=== PATIENT | male | born 1960 | race Caucasian/White ===

== ENCOUNTER → 2019-10-26 15:14 | Outpatient (CLI) | payer OTHER, SELFPAY ==
[2019-10-26 15:52] LABS: Add Manual Diff / Slide Review NO; Basophils Absolute Auto 100 /uL (0-100); Basophils Percent Auto 0.9 % (0-2); Eosinophils Absolute Auto 200 /uL (0-450); Eosinophils Percent Auto 2.6 % (2-4); Hematocrit 44.6 % (41-53); Hemoglobin 15.5 g/dL (13.5-17.5); Lymphocytes Absolute Auto 1500 /uL (1100-4500); Lymphocytes Percent Auto 24.4 % (25-40); Mean Corpuscular HGB Conc 34.7 % (30-36); Mean Corpuscular Hemoglobin 33.5 PG (26-34); Mean Corpuscular Volume 96.5 fL (80-100); Monocytes Absolute Auto 500 /uL (0-900); Monocytes Percent Auto 8.4 % (3-14); Neutrophils Absolute Auto 3800 /uL (1500-7000); Neutrophils Percent Auto 63.7 % (50-75); Platelet Count 211 X10^3/uL (150-400); Red Blood Cell Count 4.63 X10^6/uL (4.5-5.9); Red Cell Distribution Width 13.5 % (11.6-14.8)
[2019-10-26 16:17] LABS: Alanine Aminotransferase 24 IU/L (<50); Albumin 4.4 g/dL (3.5-5.0); Albumin Globulin Ratio 1.6 (1.0-2.8); Alkaline Phosphatase 52 U/L (38-126); Aspartate Aminotransferase 28 IU/L (17-59); Bilirubin Total 0.9 mg/dL (0.2-1.3); Blood Urea Nitrogen 20 mg/dL (9-20); Carbon Dioxide 28 mmol/L (22-32); Chloride 107 mmol/L (98-107); Estimated Glomerular Filt Rate > 60.0 mL/min (>60); Globulin 2.7 g/dL (1.7-4.1); Glucose 79 mg/dL (80-110); HEMOLYSIS < 15 (0-50); Potassium 4.7 mmol/L (3.4-5.1); Sodium 142 mmol/L (137-145); Total Protein 7.1 g/dL (6.3-8.2)
== END ==
PROVIDERS: PCP Family Medicine; Referring Provider Family Medicine; Visit Provider Family Medicine
DX: J06.9 Acute upper respiratory infection, unspecified (principal)
CPT/HCPCS: 36415; 80053; 85025

== ENCOUNTER → 2020-06-10 10:28 | Outpatient (CLI) | payer OTHER, SELFPAY ==
[2020-06-10 11:18] LABS: Add Manual Diff / Slide Review NO; Basophils Absolute Auto 0 /uL (0-100); Basophils Percent Auto 0.8 % (0-2); Eosinophils Absolute Auto 200 /uL (0-450); Eosinophils Percent Auto 3.9 % (2-4); Hematocrit 44.4 % (41-53); Hemoglobin 15.1 g/dL (13.5-17.5); Lymphocytes Absolute Auto 1100 /uL (1100-4500); Lymphocytes Percent Auto 27.7 % (25-40); Mean Corpuscular HGB Conc 34.1 % (30-36); Mean Corpuscular Hemoglobin 32.8 PG (26-34); Mean Corpuscular Volume 96.1 fL (80-100); Monocytes Absolute Auto 400 /uL (0-900); Monocytes Percent Auto 10.4 % (3-14); Neutrophils Absolute Auto 2200 /uL (1500-7000); Neutrophils Percent Auto 57.2 % (50-75); Platelet Count 212 X10^3/uL (150-400); Red Blood Cell Count 4.62 X10^6/uL (4.5-5.9); Red Cell Distribution Width 13.2 % (11.6-14.8); White Blood Cell Count 3.9 X10^3/uL (4.5-11.0)
[2020-06-10 11:38] LABS: Alanine Aminotransferase 17 IU/L (<50); Albumin 4.1 g/dL (3.5-5.0); Albumin Globulin Ratio 1.5 (1.0-2.8); Alkaline Phosphatase 56 U/L (38-126); Aspartate Aminotransferase 28 IU/L (17-59); BUN Creatinine Ratio 15.4 (6-22); Bilirubin Total 1.6 mg/dL (0.2-1.3); Blood Urea Nitrogen 14 mg/dL (9-20); Calcium 9.3 mg/dL (8.4-10.2); Carbon Dioxide 24 mmol/L (22-32); Chloride 105 mmol/L (98-107); Cholesterol 150 mg/dL (140-199); Estimated Glomerular Filt Rate > 60.0 mL/min (>60); Globulin 2.8 g/dL (1.7-4.1); Glucose 92 mg/dL (80-110); HDL Cholesterol 53 mg/dL (40-60); HEMOLYSIS < 15 (0-50); LDL Cholesterol Calculated 85 mg/dL (<100); Potassium 4.1 mmol/L (3.4-5.1); Sodium 136 mmol/L (137-145); Total Protein 6.9 g/dL (6.3-8.2); Triglycerides 61 mg/dL (35-150)
[2020-06-10 11:47] LABS: Creatinine Urine Random 220.9 mg/dL
[2020-06-10 12:01] LABS: Microalbumi Creatinin Ratio Ur 101.4 ug/mg CR (<30); Microalbumin Urine Random 22.4 mg/dL (0-1.6)
[2020-06-10 12:07] LABS: Prostate Specific Antigen Scrn 0.312 ng/mL (0.1-4.0)
[2020-06-13 13:05] LABS: Fecal Immunochemical Test Negative (Negative)
== END ==
PROVIDERS: PCP Family Medicine; Referring Provider Family Medicine; Visit Provider Family Medicine
DX: I10 Essential (primary) hypertension (principal); Z12.11 Encounter for screening for malignant neoplasm of colon; Z12.5 Encounter for screening for malignant neoplasm of prostate; Z13.220 Encounter for screening for lipoid disorders; Z13.29 Encounter for screening for other suspected endocrine disorder
CPT/HCPCS: 36415; 80053; 80061; 82043; 82274; 82570; 84443; 85025; G0103

== ENCOUNTER → 2021-01-28 09:06 | Outpatient (CLI) | payer OTHER, SELFPAY ==
[2021-01-28 09:49] LABS: COVID19 -Nasal RAPID Negative (Negative)
== END ==
PROVIDERS: PCP Family Medicine; Visit Provider Physician Assistant
DX: R05 Cough (principal); J02.9 Acute pharyngitis, unspecified; Z20.822 Contact with and (suspected) exposure to COVID-19
CPT/HCPCS: 87070; 87635

== ENCOUNTER → 2022-01-24 10:50 | Outpatient (CLI) | payer OTHER, SELFPAY ==
[2022-01-24 12:37] LABS: Add Manual Diff / Slide Review NO; Basophils Absolute Auto 0 /uL (0-100); Basophils Percent Auto 0.6 % (0-2); Eosinophils Absolute Auto 100 /uL (0-450); Hematocrit 43.2 % (41-53); Lymphocytes Absolute Auto 1200 /uL (1100-4500); Lymphocytes Percent Auto 20.2 % (25-40); Mean Corpuscular HGB Conc 34.6 % (30-36); Mean Corpuscular Hemoglobin 32.9 PG (26-34); Mean Corpuscular Volume 94.8 fL (80-100); Monocytes Absolute Auto 400 /uL (0-900); Neutrophils Absolute Auto 4300 /uL (1500-7000); Neutrophils Percent Auto 72.2 % (50-75); Platelet Count 208 X10^3/uL (150-400); Red Blood Cell Count 4.56 X10^6/uL (4.5-5.9); Red Cell Distribution Width 13.3 % (11.6-14.8); White Blood Cell Count 5.9 X10^3/uL (4.5-11.0)
[2022-01-24 12:54] LABS: Alanine Aminotransferase 20 IU/L (<50); Albumin 4.2 g/dL (3.5-5.0); Albumin Globulin Ratio 1.4 (1.0-2.8); Alkaline Phosphatase 60 U/L (38-126); Aspartate Aminotransferase 29 IU/L (17-59); BUN Creatinine Ratio 16.1 (6-22); Blood Urea Nitrogen 14 mg/dL (9-20); C-Reactive Protein Quant < 0.5 mg/dL (<1.0); Calcium 9.2 mg/dL (8.4-10.2); Carbon Dioxide 28 mmol/L (22-32); Chloride 106 mmol/L (98-107); Cholesterol 148 mg/dL (140-199); Estimated Glomerular Filt Rate > 60 mL/min (>60); Globulin 2.9 g/dL (1.7-4.1); Glucose 92 mg/dL (80-110); HDL Cholesterol 48 mg/dL (40-60); HEMOLYSIS < 15 (0-50); LDL Cholesterol Calculated 84 mg/dL (<100); Potassium 4.2 mmol/L (3.4-5.1); Sodium 140 mmol/L (137-145); Total Protein 7.1 g/dL (6.3-8.2); Triglycerides 79 mg/dL (35-150)
== END ==
PROVIDERS: PCP Family Medicine; Referring Provider Family Medicine; Visit Provider Family Medicine
DX: I10 Essential (primary) hypertension (principal); I71.2 Thoracic aortic aneurysm, without rupture
CPT/HCPCS: 36415; 80053; 80061; 85025; 86140

== ENCOUNTER → 2022-10-30 08:47 | Outpatient (CLI) | payer OTHER, SELFPAY ==
--- NOTE | 2022-10-30 08:48 | DI.RAD.S_ITS ---
PROCEDURE: XR FINGER LT MIN 2V INDICATIONS: Persistent left finger pain D IP joint TECHNIQUE: AP hand, 2 views of the 2nd finger(s) acquired. COMPARISON: None. FINDINGS: Bones: No fractures or dislocations. No suspicious bony lesions. Mild increased sclerosis is present within the 2nd distal phalanx suspected to be related to bone island. There is overall moderate IP degenerative narrowing particularly prominent at the 2nd DIP joint. Small areas of periarticular lucency are present at the 1st PIP, 2nd and 4th DIP joints. Soft tissues: No suspicious soft tissue calcifications. IMPRESSION: IP narrowing with areas of periarticular lucencies which may represent periarticular cysts versus erosions. DIP joint pain is felt to be likely secondary to arthritic change. Dictated by: Natividad Balderas M.D. on 10/30/2022 at 16:04 Approved by: Natividad Balderas M.D. on 10/30/2022 at 16:05
== END ==
PROVIDERS: PCP Family Medicine; Referring Provider Family Medicine; Visit Provider Family Medicine
DX: M79.645 Pain in left finger(s) (principal)
CPT/HCPCS: 73140

== ENCOUNTER → 2023-12-05 14:53 | Outpatient (CLI) | payer MEDICARE, OTHER, SELFPAY ==
[2023-12-05 16:25] LABS: Add Manual Diff / Slide Review NO; Basophils Absolute Auto 100 /uL (0-100); Eosinophils Absolute Auto 100 /uL (0-450); Eosinophils Percent Auto 2.3 % (2-4); Hematocrit 42.6 % (41-53); Hemoglobin 14.6 g/dL (13.5-17.5); Lymphocytes Absolute Auto 1500 /uL (1100-4500); Mean Corpuscular HGB Conc 34.3 % (30-36); Mean Corpuscular Hemoglobin 33.1 PG (26-34); Mean Corpuscular Volume 96.6 fL (80-100); Monocytes Absolute Auto 400 /uL (0-900); Monocytes Percent Auto 7.8 % (3-14); Neutrophils Absolute Auto 3100 /uL (1500-7000); Neutrophils Percent Auto 59.9 % (50-75); Platelet Count 197 X10^3/uL (150-400); Red Blood Cell Count 4.41 X10^6/uL (4.5-5.9); Red Cell Distribution Width 13.7 % (11.6-14.8); White Blood Cell Count 5.2 X10^3/uL (4.5-11.0)
[2023-12-05 17:20] LABS: TSH w/ Reflex to FT4 1.94 uIU/mL (0.47-4.68)
[2023-12-05 18:16] LABS: HEMOLYSIS < 15 (0-50)
[2023-12-05 18:24] LABS: Alanine Aminotransferase 20 IU/L (<50); Albumin 4.1 g/dL (3.5-5.0); Albumin Globulin Ratio 1.4 (1.0-2.8); Alkaline Phosphatase 60 U/L (38-126); Aspartate Aminotransferase 30 IU/L (17-59); Bilirubin Total 1.2 mg/dL (0.2-1.3); Blood Urea Nitrogen 19 mg/dL (9-20); Calcium 9.3 mg/dL (8.4-10.2); Carbon Dioxide 21 mmol/L (22-32); Chloride 109 mmol/L (98-107); Cholesterol 206 mg/dL (140-199); Estimated Glomerular Filt Rate > 60 mL/min (>60); Globulin 2.9 g/dL (1.7-4.1); Glucose 81 mg/dL (80-110); HDL Cholesterol 55 mg/dL (40-60); LDL Cholesterol Calculated 136 mg/dL (<100); Potassium 4.1 mmol/L (3.4-5.1); Sodium 138 mmol/L (137-145); Triglycerides 73 mg/dL (35-150); Uric Acid 6.9 mg/dL (3.5-8.5)
== END ==
PROVIDERS: PCP Family Medicine; Referring Provider Family Medicine; Visit Provider Family Medicine
DX: Z00.00 Encounter for general adult medical examination without abnormal findings (principal); R80.1 Persistent proteinuria, unspecified; I10 Essential (primary) hypertension; I71.20 Thoracic aortic aneurysm, without rupture, unspecified
CPT/HCPCS: 80053; 80061; 84153; 84443; 84550; 85025

== ENCOUNTER → 2024-01-24 15:56 | Outpatient (CLI) | payer MEDICARE, OTHER, SELFPAY ==
[2024-01-24 16:42] LABS: Erythrocyte Sedimentation Rate 3 MM/HR (0-15)
[2024-01-24 17:07] LABS: C-Reactive Protein Quant < 0.5 mg/dL (<1.0); Uric Acid 5.8 mg/dL (3.5-8.5)
== END ==
PROVIDERS: PCP Family Medicine; Referring Provider Family Medicine; Visit Provider Family Medicine
DX: M79.89 Other specified soft tissue disorders (principal)
CPT/HCPCS: 36415; 84550; 85651; 86140

== ENCOUNTER → 2024-04-03 15:38 | Outpatient (CLI) | payer MEDICARE, OTHER, SELFPAY ==
[2024-04-03 17:24] LABS: Alanine Aminotransferase 22 IU/L (<50); Albumin 4.2 g/dL (3.5-5.0); Albumin Globulin Ratio 1.6 (1.0-2.8); Alkaline Phosphatase 56 U/L (38-126); Aspartate Aminotransferase 29 IU/L (17-59); Bilirubin Total 1.5 mg/dL (0.2-1.3); Blood Urea Nitrogen 17 mg/dL (9-20); Calcium 9.2 mg/dL (8.4-10.2); Carbon Dioxide 23 mmol/L (22-32); Chloride 110 mmol/L (98-107); Estimated Glomerular Filt Rate > 60 mL/min (>60); Globulin 2.6 g/dL (1.7-4.1); Glucose 89 mg/dL (80-110); HEMOLYSIS < 15 (0-50); Magnesium 2.7 mg/dL (1.6-2.3); Potassium 4.6 mmol/L (3.4-5.1); Sodium 140 mmol/L (137-145); Total Protein 6.8 g/dL (6.3-8.2)
[2024-04-03 17:52] LABS: Thyroid Stimulating Hormone 1.24 uIU/mL (0.47-4.68)
[2024-04-07 16:49] LABS: Cholesterol 132 mg/dL (140-199); HDL Cholesterol 44 mg/dL (40-60); LDL Cholesterol Calculated 65 mg/dL (<100); Triglycerides 114 mg/dL (35-150)
== END ==
PROVIDERS: PCP Family Medicine; Referring Provider Internal Medicine Cardiovascular Disease; Visit Provider Internal Medicine Cardiovascular Disease
DX: I47.10 Supraventricular tachycardia, unspecified (principal); I47.20 Ventricular tachycardia, unspecified; E78.5 Hyperlipidemia, unspecified
CPT/HCPCS: 36415; 80053; 80061; 83735; 84443

== ENCOUNTER → 2024-04-28 | Outpatient (CLI) | payer MEDICARE, OTHER, SELFPAY ==
--- NOTE | 2024-04-28 | DI.ECHO.S_ITS ---
[facility] +---------+ [facility] : : [address] : [place] : : [id number] : : Phone: [phone] Echocardiogram Report + + :Name: TRISTIAN WEINER Study Date: 04/28/2024 Height: 74 in : :Hospital ReadingLocation: Weight: 185 lb : : Gender: Male BSA: 2.1 m2 : :: 1960 Age: 63 yrs BP: 126/78 mmHg: :Reason For Study: SHORTNESS OF BREATH : :Ordering Physician: TORRIE, : :MARIAN Performed By: Lesia Mejia : :Referring: MARIAN BROWNLEE : + + Interpretation Summary The left ventricle is normal in size. The left ventricular ejection fraction is normal. The ejection fraction is estimated to be 55-60%. The right ventricle is normal in size and function. There is mild aortic regurgitation. There is mild tricuspid regurgitation. The right ventricular systolic pressure is estimated to be at least 27 mmHg based on an estimated right atrial pressure of 3 mm Hg. The ascending aorta is moderately enlarged. 4.6 cm in diameter. Mild atherosclerotic plaque(s) in the aortic arch. There is mild luminal irregularity and echogenicity in the abdominal aorta, suggestive of aortic atherosclerotic disease. Procedure: A two-dimensional transthoracic echocardiogram with color flow and Doppler was performed. The study quality was technically adequate. There is no prior echocardiogram noted for this patient. The heart rate ranged between 55-60 bpm during the study. The patient was in normal sinus rhythm during the exam. Left Ventricle: The left ventricle is normal in size. Proximal septal thickening is noted. There is no echo evidence for significant left ventricular outflow tract obstruction. There is no thrombus. The ejection fraction is estimated to be 55-60%. The left ventricular ejection fraction is normal. There are no focal wall motion abnormalities. Diastolic parameters suggest probable normal left ventricular diastolic function and normal filling pressures. Right Ventricle: The right ventricle is normal in size and function. Atria: The left atrial size is normal. Right atrial size is normal. There is no Doppler evidence for an interatrial shunt. Mitral Valve: The mitral valve leaflets are slightly calcified. There is trace mitral regurgitation. Aortic Valve: The aortic valve opens well. The aortic valve is trileaflet. There is no aortic valve stenosis. There is mild aortic regurgitation. Tricuspid Valve: The tricuspid valve is normal. There is mild tricuspid regurgitation. The right ventricular systolic pressure is estimated to be at least 27 mmHg based on an estimated right atrial pressure of 3 mm Hg. Pulmonic Valve: The pulmonic valve leaflets are thin and pliable; valve motion is normal. There is trace pulmonic regurgitation. Great Vessels: The aortic root is normal size. The ascending aorta is moderately enlarged. There is mild luminal irregularity and echogenicity in the abdominal aorta, suggestive of aortic atherosclerotic disease. Mild atherosclerotic plaque(s) in the aortic arch. The IVC is of normal diameter and collapses greater than 50% with a sniff. This suggests a low right atrial pressure of 3 mm Hg. Pericardium/ Pleura There is no pericardial effusion. There is no pleural effusion. MMode/2D Measurements & Calculations LVIDd: 5.2 cm LVOT diam: 2.3 cm LVIDs: 3.7 cm Ao root diam: 3.8 cm FS: 28.8 % asc Aorta Diam: 4.6 cm IVSd: 0.85 cm Ao Arch Diam (Prox Trans): 2.4 cm LVPWd: 1.1 cm LV yeung. diameter/BSA (cm/m^2): 2.5 LV sys. diameter/BSA (cm/m^2): 1.8 LA A2 area: 19.1 cm2 RA long axis: 4.6 cm LA A4 area: 19.1 cm2 RA area: 17.5 cm2 LA length (vol): 5.7 cm RA vol: 56.4 ml LA vol: 54.5 ml RA : 26.8 ml/m2 LA vol index: 25.9 ml/m2 IVC diam: 1.6 cm RVD1 (basal): 3.6 cm TAPSE: 2.0 cm Doppler Measurements & Calculations Ao V2 max: 121.5 cm/sec LVOT Max Gerald: 70.9 cm/sec Ao V2 mean: 84.5 cm/sec LV V1 max P.0 mmHg Ao max P.9 mmHg LV V1 VTI: 16.0 cm Ao mean P.3 mmHg MARGOT(I,D): 2.8 cm2 Ao V2 VTI: 24.8 cm MAGROT(V,D): 2.5 cm2 sev ratio: 0.65 MARGOT indexed to BSA (cm^2/m^2): 1.3 MV E max gerald: 42.9 cm/sec TR max gerald: 242.6 cm/sec MV A max gerald: 41.6 cm/sec TR max P.5 mmHg MV E/A: 1.0 PA V2 max: 75.3 cm/sec Med Peak E' Gerald: 7.2 cm/sec PA V2 mean: 59.4 cm/sec E/E' med: 6.0 PA mean P.5 mmHg Lat Peak E' Gerald: 8.7 cm/sec PA pr(Accel): 37.9 mmHg E/E' lat: 4.9 E/e' average: 5.4 MV dec time: 0.28 sec SV(LVOT): 68.5 ml Reading Physician:08:47 AM
--- NOTE | 2024-04-28 19:55 | DI.NM.S_ITS ---
DATE OF SERVICE: 04/28/2024 PROCEDURE: Exercise perfusion study. INDICATIONS: Exertional shortness of breath. RADIOPHARMACEUTICAL: 27.1 millicurie technetium-99m Myoview IV was injected at stress and 12.5 millicurie technetium-99m Myoview IV was injected at rest. CARDIAC STRESS: The patient underwent exercise perfusion study under the supervision of an attending staff. The patient walked on Kirit protocol for 12 minutes and achieved maximum heart rate of 135, which was 87% of target heart rate. Normal blood pressure response. Resting blood pressure 120/80 and peak blood pressure 160/82. Baseline rhythm was sinus with some nonspecific ST-T changes. During stress, no convincing ischemic changes other than some nonspecific ST-T changes. PVCs toward the end of recovery. No ventricular tachycardia. No chest discomfort. Had leg weakness as well as shortness of breath during exertion. Achieved 12.8 METs of workload. TORI -47%. RAW DATA: There is an increased subdiaphragmatic activity. GATED STUDY: Stress LV ejection fraction 64% without any obvious wall motion abnormalities. Resting end-diastolic volume 154 mL. TID ratio 1.03, which is within normal limits. Lung/heart ratio 0.23, which is within normal limits. MYOCARDIAL PERFUSION SCAN: Stress supine, resting supine and stress prone images were compared to each other. 1. Stress supine and resting supine images showed moderate size, moderate to severely decreased perfusion of inferior wall extending into the inferoapex, which got significantly improved during stress prone images suggestive of diaphragmatic tissue attenuation artifact. 2. Resting supine images also revealed small size, moderately decreased perfusion of mid anterior wall. Stress supine and stress prone images revealed moderate size, severely decreased perfusion of mid to distal anterior wall extending into the anteroapex and entire anteroseptum. CONCLUSION: 1. This is an abnormal myocardial perfusion study consistent with significant ischemia in the mid to distal anterior wall extending into the anteroapex and entire anteroseptum with small size infarction of mid anterior wall and distal anteroseptum. 2. Also evidence of diaphragmatic tissue attenuation artifact, which resulted in improvement of inferior wall defect during stress prone images. 3. Summed stress score 13 and summed rest score 2 with summed difference score 11. 4. Good exercise tolerance with normal hemodynamic response. Moderate shortness of breath and leg weakness during exercise without any chest discomfort. Oxygen saturation 97% at peak exercise. 5. Preserved LV function. Amadou Edouard - FINANCE CLERK/priyanka/PAYTON doc#: [id number]/job#: [id number] dd: 04/28/2024 17:13:00 dt: 04/28/2024 19:27:00 DICTATING MD/COPIES TO: Danny Ty MD COPIES MNE: SCOOBY;
== END ==
PROVIDERS: PCP Family Medicine; Referring Provider Internal Medicine Cardiovascular Disease; Visit Provider Internal Medicine Cardiovascular Disease
DX: I08.2 Rheumatic disorders of both aortic and tricuspid valves (principal); I77.89 Other specified disorders of arteries and arterioles; R94.39 Abnormal result of other cardiovascular function study; I70.0 Atherosclerosis of aorta; R06.02 Shortness of breath
CPT/HCPCS: 78452; 93017; 93306; A9502

== ENCOUNTER → 2024-05-08 11:24 | Outpatient (CLI) | payer MEDICARE, OTHER, SELFPAY ==
--- NOTE | 2024-05-08 11:26 | DI.RAD.S_ITS ---
PROCEDURE: XR FINGER RT MIN 2V INDICATIONS: middle finger TECHNIQUE: AP hand, 2 views of the right 3rd finger(s) acquired. COMPARISON: None. FINDINGS: Bones: The 1st MCP is solidly fused. 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 There is moderate degenerative change in the remaining interphalangeal and 1st CMC joints. Mild diffuse osteoporosis noted. Soft tissues: No soft tissue abnormality. 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 Solid fusion across the 1st MCP Multilevel degeneration Dictated by: James Carlson M.D. on 05/11/2024 at 6:35 Approved by: James Carlson M.D. on 05/11/2024 at 6:37
== END ==
PROVIDERS: PCP Family Medicine; Referring Provider Family Medicine; Visit Provider Family Medicine
DX: M15.4 Erosive (osteo)arthritis (principal); M24.641 Ankylosis, right hand; M79.644 Pain in right finger(s)
CPT/HCPCS: 73140

== ENCOUNTER → 2024-06-22 12:12 | Outpatient (CLI) | payer MEDICARE, OTHER, SELFPAY ==
--- NOTE | 2024-06-22 | DI.ECHO.S_ITS ---
[facility] +---------+ [facility] : : [address] : : [place] : : [id number] : : Phone: [phone] Echocardiogram Report + + :Name: TRISTIAN WEINER Study Date: 06/22/2024 Height: 74 in : :Hospital ReadingLocation: Weight: 185 lb : : Gender: Male BSA: 2.1 m2 : :: 1960 Age: 63 yrs BP: 132/83 mmHg: :Reason For Study: ISCHEMIC CARDIOMYOPATHY : :Ordering Physician: TORRIE, : :MARIAN Performed By: Lesia Mejia : :Referring: MARIAN BROWNLEE : + + Interpretation Summary The left ventricle is normal in size. The ejection fraction is estimated to be 50-55%. Compared to the prior exam, the left ventricular function is improved. On April 30, 2024, LVEF 40 to 45% with severe hypokinesis to akinesis of mid to distal anteroseptum, distal inferior septum, apex, distal anterior wall and distal inferior wall. In this study, significant improvement in all those wall motion abnormalities. LVEF improved from 40 to 45% to 50 to 55%. Procedure: Images were not obtained from all of the standard acoustic windows due to the limited scope of the study. The study quality was technically adequate. Comparison is made with the echocardiogram of 04/30/2024. The patient was in sinus bradycardia with heart rates between 55- 58 bpm during the exam. Left Ventricle: The left ventricle is normal in size. Proximal septal thickening is noted. A false chord is noted (normal variant). The ejection fraction is estimated to be 50-55%. Compared to the prior exam, the left ventricular function is improved. Pericardium/ Pleura There is no pericardial effusion. There is no pleural effusion. MMode/2D Measurements & Calculations LVIDd: 5.5 cm LVIDs: 3.8 cm FS: 31.3 % EPSS: 0.83 cm IVSd: 0.99 cm LVPWd: 0.91 cm LV yeung. diameter/BSA (cm/m^2): 2.6 LV sys. diameter/BSA (cm/m^2): 1.8 Reading Physician:04:43 PM
== END ==
LOC: ECHO 12:14
PROVIDERS: PCP Family Medicine; Referring Provider Internal Medicine Cardiovascular Disease; Visit Provider Internal Medicine Cardiovascular Disease
DX: I25.5 Ischemic cardiomyopathy (principal)
CPT/HCPCS: 93307

== ENCOUNTER → 2024-06-30 13:47 | Outpatient (CLI) | payer MEDICARE, OTHER, SELFPAY ==
--- NOTE | 2024-06-30 13:49 | DI.MRI.S_ITS ---
PROCEDURE: MR HAND RT WO CON INDICATIONS: H/O RT MIDDLE FINGER INFECTION,R/O OSTEOMYELITIS TECHNIQUE: Noncontrast coronal T1 spin echo and T2 fast spin echo with fat saturation, axial proton density fast spin echo and T2 fast spin echo with fat saturation, sagittal T1 spin echo and STIR through the hand and fingers. COMPARISON: None. FINDINGS: Image quality: Excellent. Bones: Osseous fusion of the 1st metacarpal phalangeal joint. Small cystic changes with mild marrow edema in the 1st metacarpal neck, nonspecific and may be degenerative. Mild degenerative changes of the 5th proximal interphalangeal joint with subjacent cystic changes. Mild degenerative changes at the 4th metacarpal base. Diffuse marrow edema about the 3rd distal interphalangeal joint with associated subchondral cortical irregularity, concerning for erosion in the setting of septic arthritis with associated osteomyelitis. Small amount of fluid within the 3rd distal interphalangeal joint. No drainable fluid collection. Interphalangeal joint(s): The accessory and proper collateral ligaments appear intact. The volar plate demonstrates normal morphology. The extensor central slips appear intact on sagittal images. Metacarpophalangeal joint(s): The accessory and proper collateral ligaments appear intact, as well as the volar plate and adjacent deep transverse metacarpal ligaments. The sagittal bands of the extensor katz appear normal. Extensor apparatus: The central slips insert normally on the middle phalangeal base. The conjoint and terminal tendons insert normally on the distal phalangeal bases. More proximal portions of the extensor tendons also appear normal. Flexor apparatus: The flexor digitorum superficialis and profundus tendons both appear intact. All annular and cruciform pulleys appear intact, without adjacent soft tissue edema. Soft tissues: Visualized muscles demonstrate normal bulk and internal signal. No intramuscular masses identified. No ganglion cysts. IMPRESSION: 1. Diffuse marrow edema with suggestion of erosions about the 3rd distal interphalangeal joint, concerning for septic arthritis with associated osteomyelitis given patient's history. Alternatively, erosive arthropathy may have similar appearance. Sterility cannot be established based on imaging. Dictated by: Ne Shankar M.D. on 06/30/2024 at 15:47 Approved by: Ne Shankar M.D. on 06/30/2024 at 15:59
== END ==
LOC: MRI 13:48
PROVIDERS: PCP Family Medicine; Referring Provider Orthopaedic Surgery; Visit Provider Orthopaedic Surgery
DX: M20.011 Mallet finger of right finger(s) (principal)
CPT/HCPCS: 73218

== ENCOUNTER → 2024-07-01 08:45 | Outpatient (CLI) | payer MEDICARE, OTHER, SELFPAY ==
[2024-07-01 10:40] LABS: Alanine Aminotransferase 69 IU/L (<50); Albumin 4.2 g/dL (3.5-5.0); Albumin Globulin Ratio 1.8 (1.0-2.8); Alkaline Phosphatase 58 U/L (38-126); Aspartate Aminotransferase 54 IU/L (17-59); BUN Creatinine Ratio 15.1 (6-22); Bilirubin Total 1.3 mg/dL (0.2-1.3); Blood Urea Nitrogen 14 mg/dL (9-20); Calcium 9.9 mg/dL (8.4-10.2); Carbon Dioxide 28 mmol/L (22-32); Chloride 104 mmol/L (98-107); Cholesterol 138 mg/dL (140-199); Estimated Glomerular Filt Rate > 60 mL/min (>60); Globulin 2.4 g/dL (1.7-4.1); Glucose 94 mg/dL (80-110); HDL Cholesterol 57 mg/dL (40-60); HEMOLYSIS < 15 (0-50); LDL Cholesterol Calculated 64 mg/dL (<100); Potassium 5.5 mmol/L (3.4-5.1); Sodium 136 mmol/L (137-145); Total Protein 6.6 g/dL (6.3-8.2); Triglycerides 83 mg/dL (35-150)
== END ==
PROVIDERS: PCP Family Medicine; Referring Provider Internal Medicine Cardiovascular Disease; Visit Provider Internal Medicine Cardiovascular Disease
DX: I25.10 Atherosclerotic heart disease of native coronary artery without angina pectoris (principal)
CPT/HCPCS: 36415; 80053; 80061

== ENCOUNTER → 2024-07-08 14:04 | Outpatient (CLI) | payer MEDICARE, OTHER, SELFPAY ==
[2024-07-08 14:56] LABS: Alanine Aminotransferase 45 IU/L (<50); Albumin 4.1 g/dL (3.5-5.0); Albumin Globulin Ratio 1.8 (1.0-2.8); Alkaline Phosphatase 58 U/L (38-126); Aspartate Aminotransferase 34 IU/L (17-59); Bilirubin Unconjugated 0.9 mg/dL (0.0-1.1); Globulin 2.3 g/dL (1.7-4.1); HEMOLYSIS < 15 (0-50); Total Protein 6.4 g/dL (6.3-8.2)
== END ==
PROVIDERS: PCP Family Medicine; Referring Provider Internal Medicine Cardiovascular Disease; Visit Provider Internal Medicine Cardiovascular Disease
DX: R79.89 Other specified abnormal findings of blood chemistry (principal)
CPT/HCPCS: 36415; 80076

== ENCOUNTER 2024-09-30 12:30 | Outpatient (RCR) | payer MEDICARE, OTHER, SELFPAY | END 2024-09-30 14:30 | LOC: CAR 12:30 | PROVIDERS: PCP Family Medicine; Referring Provider Family Medicine; Visit Provider Internal Medicine Cardiovascular Disease | DX: Z95.5 Presence of coronary angioplasty implant and graft (principal) | CPT/HCPCS: 93798 ==

== ENCOUNTER → 2025-05-05 08:05 | Outpatient (CLI) | payer MEDICARE, OTHER, SELFPAY ==
[2025-05-05 10:14] LABS: Hematocrit 46.0 % (41-53); Hemoglobin 16.0 g/dL (13.5-17.5); Mean Corpuscular HGB Conc 34.8 % (30-36); Mean Corpuscular Hemoglobin 33.6 PG (26-34); Mean Corpuscular Volume 96.6 fL (80-100); Platelet Count 179 X10^3/uL (150-400)
[2025-05-05 10:23] LABS: Alanine Aminotransferase 27 IU/L (<50); Albumin 4.2 g/dL (3.5-5.0); Albumin Globulin Ratio 1.8 (1.0-2.8); Alkaline Phosphatase 52 U/L (38-126); Blood Urea Nitrogen 10 mg/dL (9-20); Calcium 9.7 mg/dL (8.4-10.2); Carbon Dioxide 28 mmol/L (22-32); Chloride 104 mmol/L (98-107); Cholesterol 126 mg/dL (140-199); Estimated Glomerular Filt Rate > 60 mL/min (>60); Globulin 2.4 g/dL (1.7-4.1); Glucose 87 mg/dL (70-99); HDL Cholesterol 59 mg/dL (40-60); HEMOLYSIS < 15 (0-50); Potassium 4.7 mmol/L (3.4-5.1); Sodium 138 mmol/L (137-145); Total Protein 6.6 g/dL (6.3-8.2); Triglycerides 87 mg/dL (35-150)
== END ==
PROVIDERS: PCP Family Medicine; Referring Provider Internal Medicine Cardiovascular Disease; Visit Provider Internal Medicine Cardiovascular Disease
DX: E78.5 Hyperlipidemia, unspecified (principal); I10 Essential (primary) hypertension; I25.5 Ischemic cardiomyopathy
CPT/HCPCS: 36415; 80053; 80061; 85027

== ENCOUNTER → 2025-05-13 10:03 | Outpatient (CLI) | payer MEDICARE, OTHER, SELFPAY ==
--- NOTE | 2025-05-13 | DI.US.S_ITS ---
PROCEDURE: US ARTERIAL DUPLEX LE BI INDICATIONS: PAIN IN BOTH LEGS/SOB TECHNIQUE: Color and pulse Doppler interrogation was performed of both lower extremity arterial systems, with image documentation. COMPARISON: [facility], , AORTA LIMITED, 05/13/2025, 10:43. FINDINGS: Normal-appearing, triphasic waveforms are seen proximally, with a few biphasic waveform seen distally. The flow velocities are likewise within normal limits. No focal area of increased flow velocity is seen to suggest a focal stenosis. Antegrade flow is confirmed to the distal aspects of each of the trifurcation vessels. No significant parker scale abnormality is seen. IMPRESSION: No hemodynamically significant stenosis can be seen. Dictated by: Mikel Sifuentes M.D. on 05/13/2025 at 12:12 Approved by: Mikel Sifuentes M.D. on 05/13/2025 at 12:13
--- NOTE | 2025-05-13 | DI.US.S_ITS ---
PROCEDURE: US AORTA LIMITED INDICATIONS: PAIN IN LEGS TECHNIQUE: Real time scanning was performed of the aorta and iliac arteries, with image documentation. COMPARISON: None. FINDINGS: Aorta: Proximal aortic diameter measures 2.1 cm. Mid-aorta measures 2.4 cm. Distal aortic diameter is 2 point cm. Iliac arteries: Right common iliac artery measures 0.9 cm. Left common iliac artery measures 1.1 cm. Mildly elevated flow velocity can be seen within the left common iliac artery, measuring 147 centimeters/second. IMPRESSION: Negative for aneurysm. Mildly elevated flow velocity seen within the left common iliac artery, which may reflect a mild stenosis at this site. Dictated by: Mikel Sifuentes M.D. on 05/13/2025 at 12:10 Approved by: Mikel Sifuentes M.D. on 05/13/2025 at 12:11
== END ==
LOC: US 10:04
PROVIDERS: PCP Family Medicine; Referring Provider Family Medicine; Visit Provider Internal Medicine Cardiovascular Disease
DX: M79.651 Pain in right thigh (principal); M79.652 Pain in left thigh
CPT/HCPCS: 93925; 93978

== ENCOUNTER → 2025-05-28 12:25 | Outpatient (CLI) | payer MEDICARE, OTHER, SELFPAY ==
--- NOTE | 2025-05-28 | DI.NM.S_ITS ---
PROCEDURE: NM HANNAH PERF SPECT REST & STR Rest and exercise myocardial perfusion SPECT with gated imaging and ejection fraction RADIOPHARMACEUTICAL: 25.7 mCi Tc-99m sestamibi IV at rest and 26.6 mCi Tc-99m sestamibi IV at peak exercise. A 2 day-protocol was performed. INDICATIONS: shortness of breath TECHNIQUE: Radiopharmaceutical was injected at peak stress test, and also at rest. SPECT images were obtained. SPECT myocardial perfusion images were displayed in short axis, horizontal long axis, and vertical long axis views. Gated images were reviewed using Travergence software. COMPARISON: None. CARDIAC STRESS: A standard Kirit treadmill exercise tolerance test was performed by the patient under the supervision of an attending staff. The patient exercised for 11 minutes and 51 seconds; functional aerobic impairment (TORI) is -48%. Hemodynamic data: There is normal heart rate response to exercise stress. Patient achieved 86% of maximum predicted heart rate at peak exercise. Hypertension at rest (BP 186/90mmHg) and hypertensive response to exercise (max BP 220/90mmHg). Symptoms: Patient denied chest pain during exercise. EKG: No diagnostic EKG changes of ischemia during exercise or recovery; rare PVCs present. FINDINGS: Raw data: There is good myocardial labeling by radiotracer. No significant motion artifacts. Left ventricle function: Gated images demonstrate normal left ventricle wall thickening. No segmental wall motion abnormality. No transient ischemic dilation; TID is 0.83 (normal less than 1.3). The left ventricle resting end-diastolic volume is 165 mL. Left ventricle stress ejection fraction is 55%; normal values are above 45%. Myocardial perfusion: There is a moderately intense perfusion defect in the distal anterior wall, apex, and distal septum at rest that improves with exercise and further improves with stress prone images, suggesting artifact with prior small infarction. No significant ischemia present. SSS 7, SRS 14. IMPRESSION: Abnormal treadmill nuclear stress test from inducible ischemia standpoint. 1) There is a moderately intense perfusion defect in the distal anterior wall, apex, and distal septum at rest that improves with exercise and further improves with stress prone images, suggesting artifact with prior small infarction. No significant ischemia present. SSS 7, SRS 14. 2) Normal left ventricular size, wall motion, and systolic function (EF post stress 55%). 3) No diagnostic ST changes during exercise or recovery. 4) No angina during the study. 5) Excellent exercise tolerance (12.8METs, TORI -48%). Target heart rate reached. 6) Hypertension at rest (BP 186/90mmHg) and hypertensive response to exercise (max BP 220/90mmHg). 7) Compared to the nuclear stress test done 04/28/2024, stress perfusion images appear better than rest perfusion images. Dictated by: Angel Jewell MD on 06/02/2025 at 16:59 Approved by: Angel Jewell MD on 06/02/2025 at 17:07
== END ==
PROVIDERS: PCP Family Medicine; Referring Provider Internal Medicine Cardiovascular Disease; Visit Provider Internal Medicine Cardiovascular Disease
DX: R06.02 Shortness of breath (principal); R94.39 Abnormal result of other cardiovascular function study; Z95.5 Presence of coronary angioplasty implant and graft
CPT/HCPCS: 78452; 93017; A9502

== ENCOUNTER → 2025-06-02 13:23 | Outpatient (CLI) | payer MEDICARE, OTHER, SELFPAY ==
--- NOTE | 2025-06-02 13:24 | DI.ECHO.S_ITS ---
[facility] +---------+ Hospital : : [address] : [place] : : [id number] : : Phone: [phone] Echocardiogram Report + + :Name: TRISTIAN WEINER Study Date: 06/02/2025 Height: 74 in : :Hospital ReadingLocation: Weight: 185 lb : : Gender: Male BSA: 2.1 m2 : :: 1960 Age: 64 yrs BP: 142/91 mmHg: :Reason For Study: SHORTNESS OF BREATH : :Ordering Physician: TORRIE, : :MARIAN Performed By: Jamie Malik : :Referring: MARIAN BROWNLEE : + + Interpretation Summary The left ventricle is normal in size. Left ventricular ejection fraction is estimated to be 50 +/- 5%. No obvious significant regional wall motion abnormalities. On June 22, 2024, LVEF 50 to 55% and on April 30, 2024, LVEF 40 to 45%. The right ventricle is normal in size and function. There is mild to moderate aortic regurgitation. Previously mild aortic regurgitation. There is mild tricuspid regurgitation. The right ventricular systolic pressure is estimated to be at least 26 mmHg based on an estimated right atrial pressure of 3 mm Hg. Procedure: A two-dimensional transthoracic echocardiogram with color flow and Doppler was performed. The study quality was technically good. Comparison is made with the echocardiogram of 06/22/2024. The patient was in sinus bradycardia with heart rates between 51-58 bpm during the exam. Left Ventricle: The left ventricle is normal in size. Left ventricular wall thickness is mildly increased. There is no ventricular septal defect visualized. A false chord is noted (normal variant). Left ventricular ejection fraction is estimated to be 50 +/- 5%. Diastolic parameters suggest a relaxation abnormality of the left ventricle, consistent with probable normal filling pressures. Right Ventricle: The right ventricle is normal in size and function. Atria: The left atrial size is normal. There has been no significant change since the previous study. Right atrial size is normal. There is no Doppler evidence for an interatrial shunt. Mitral Valve: The mitral valve leaflets appear mildly thickened. There is mild mitral annular calcification. The mitral valve leaflets are mildly calcified. There is trace mitral regurgitation. Aortic Valve: The aortic valve is trileaflet. The aortic valve opens well. The aortic valve is mildly calcified. There is mild to moderate aortic regurgitation. Tricuspid Valve: The tricuspid valve is normal. There is mild tricuspid regurgitation. The right ventricular systolic pressure is estimated to be at least 26 mmHg based on an estimated right atrial pressure of 3 mm Hg. Pulmonic Valve: The pulmonic valve is not well seen, but is grossly normal. There is no pulmonic valvular regurgitation. Great Vessels: The aortic root is mildly dilated. The ascending aorta could not be visualized. The pulmonary artery is not well visualized, but is probably normal size. The IVC is of normal diameter and collapses greater than 50% with a sniff. This suggests a low right atrial pressure of 3 mm Hg. Pericardium/ Pleura There is no pericardial effusion. There is no pleural effusion. MMode/2D Measurements & Calculations LVIDd: 5.3 cm LVOT diam: 2.6 cm LVIDs: 3.4 cm Ao root diam: 3.9 cm FS: 35.1 % Ao Arch Diam (Prox Trans): 1.6 cm EPSS: 1.8 cm IVSd: 1.2 cm LVPWd: 1.2 cm LV yeung. diameter/BSA (cm/m^2): 2.5 LV sys. diameter/BSA (cm/m^2): 1.6 LA A2 area: 19.2 cm2 RA long axis: 5.1 cm LA A4 area: 19.8 cm2 RA area: 14.8 cm2 LA length (vol): 5.5 cm RA vol: 36.4 ml LA vol: 59.1 ml RA : 17.3 ml/m2 LA vol index: 28.1 ml/m2 IVC diam: 1.9 cm RVD1 (basal): 3.6 cm RVD2 (mid): 2.6 cm TAPSE: 2.4 cm Doppler Measurements & Calculations Ao V2 max: 104.7 cm/sec LVOT Max Gerald: 82.7 cm/sec Ao V2 mean: 74.1 cm/sec LV V1 max P.7 mmHg Ao max P.4 mmHg LV V1 VTI: 22.3 cm Ao mean P.5 mmHg MARGOT(I,D): 5.5 cm2 Ao V2 VTI: 22.3 cm MARGOT(V,D): 4.3 cm2 sev ratio: 1.00 MARGOT indexed to BSA (cm^2/m^2): 2.6 AI P1/2t: 586.5 msec AI dec slope: 230.9 cm/sec2 MV E max gerald: 27.2 cm/sec TR max gerald: 239.0 cm/sec MV A max gerald: 42.3 cm/sec TR max P.8 mmHg MV E/A: 0.64 PA V2 max: 90.9 cm/sec Med Peak E' Gerald: 4.0 cm/sec PA V2 mean: 63.2 cm/sec E/E' med: 6.8 PA mean P.8 mmHg Lat Peak E' Gerald: 4.5 cm/sec PA pr(Accel): 24.2 mmHg E/E' lat: 6.0 E/e' average: 6.4 MV dec time: 0.35 sec SV(LVOT): 122.1 ml Reading Physician:05:51 PM
== END ==
LOC: NUCM 13:24
PROVIDERS: PCP Family Medicine; Referring Provider Family Medicine; Visit Provider Internal Medicine Cardiovascular Disease
DX: R94.39 Abnormal result of other cardiovascular function study (principal); R06.02 Shortness of breath; M79.651 Pain in right thigh; M79.652 Pain in left thigh; Z95.5 Presence of coronary angioplasty implant and graft
CPT/HCPCS: 93306

== ENCOUNTER 2025-07-21 17:22 | Emergency (ER) | payer MEDICARE, OTHER, SELFPAY ==
[2025-07-21] VITALS (16 sets, daily range): BP systolic 157–229; BP diastolic 78–143; PULSE 52–65; RESP 11–23; TEMP 36.6; O2SAT 95–99; BMI 23.1
--- NOTE | 2025-07-21 17:47 | DI.RAD.S_ITS ---
PROCEDURE: XR CHEST 1V INDICATIONS: Chest Pain TECHNIQUE: One view of the chest was acquired. COMPARISON: None. FINDINGS: Surgical changes and devices: None. Lungs and pleura: Lungs are clear. No pleural effusions or pneumothorax. Mediastinum: Mediastinal contours appear normal. Heart size is normal. Bones and chest wall: No suspicious bony lesions. Overlying soft tissues appear unremarkable. IMPRESSION: No acute cardiopulmonary abnormality is seen. Dictated by: Alejandro Cervantes M.D. on 07/21/2025 at 18:32 Approved by: Alejandro Cervantes M.D. on 07/21/2025 at 18:32
--- NOTE | 2025-07-21 17:47 | EKG_ITS ---
[address] [address] Test Date: 2025-07-21 Pat Name: Amadou Edouard Department: Room: Gender: Male Live Hanger: RICK : 1960 Requested By: Order Number: [id number] Reading MD: French Wood Measurements Intervals [place] Rate: 56 P: 13 DE: 190 QRS: 3 QRSD: 112 T: 50 QT: 438 QTc: 422 Interpretive Statements Sinus bradycardia Moderate voltage criteria for LVH, may be normal variant ( R in aVL , Reid product ) Possible Anteroseptal infarct , age undetermined Electronically Signed On 07-21-2025 19:58:13 PST by French Wood
[2025-07-21 18:07] LABS: Add Manual Diff / Slide Review NO; Hematocrit 46.9 % (41-53); Hemoglobin 16.1 g/dL (13.5-17.5); Lymphocytes Absolute Auto 1700 /uL (1100-4500); Mean Corpuscular HGB Conc 34.3 % (30-36); Mean Corpuscular Hemoglobin 32.8 PG (26-34); Mean Corpuscular Volume 95.6 fL (80-100); Platelet Count 189 X10^3/uL (150-400)
[2025-07-21 18:16] LABS: INR 0.9 (0.9-1.3); Prothrombin Time 10.6 SECONDS (9.4-12.5)
[2025-07-21 18:19] LABS: PTT Partial Thromboplastin Tim 31 SECONDS (25.1-36.5)
--- NOTE | 2025-07-21 18:19 | ED.CHESTPAIN ---
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 Ty that reportedly was reassuring, no cardiac catheterization thus far planned, referred for further evaluation likely for vascular surgery peripheral artery disease evaluation, saw surgeon 2 days ago [facility] Dr. Triplett, awaiting outpatient angiography evaluation to evaluate for PAD. Still having leg fatigue like symptoms. Today had some brief 5 minute episode of substernal chest discomfort 2:00 p.m., resolved without specific treatment, also another brief episode 4:00 p.m. resolved without specific treatment. Here for further evaluation. Related Data Home Medications ?Medication ?Instructions ?Recorded ?Confirmed aspirin 81 mg tablet,delayed 81 mg PO DAILY 05/08/24 01/26/25 release (Adult Low Dose Aspirin) atorvastatin 40 mg tablet 40 mg PO DAILY 05/08/24 01/26/25 clopidogrel 75 mg tablet 75 mg PO DAILY 05/08/24 01/26/25 nitroglycerin 0.4 mg sublingual mg sublingual 05/08/24 01/26/25 tablet magnesium hydroxide 400 mg/5 mL 400 mg PO DAILY PRN 09/02/24 01/26/25 oral suspension ([place] Milk of Magnesia) clonazepam 0.5 mg tablet 0.25 mg PO BEDTIME 06/18/25 Previous Rx's ?Medication ?Instructions ?Recorded rizatriptan 10 mg tablet See Rx Instructions PO .COMPLEX 03/30/22 Held on 06/18/25. #30 tabs Instructions: Per patient lisinopril 20 mg tablet 20 mg PO BID #180 tabs 10/22/23 topiramate 25 mg tablet 25 mg PO BID #180 tabs 01/06/24 gabapentin 100 mg capsule 100 mg PO BEDTIME #30 caps 06/19/24 Held on 06/18/25. Instructions: per patient lorazepam 0.5 mg tablet 0.5 mg PO DAILY PRN anxiety #10 07/23/24 tabs prazosin 2 mg capsule 6 mg (3 x 2 mg) PO QPM for 01/27/25 Held on 06/18/25. nightmares #270 caps Instructions: per patient metoprolol succinate 25 mg 25 mg PO DAILY #90 tabs 06/04/25 tablet,extended release 24 hr doxepin 10 mg capsule 10 mg PO BEDTIME #30 caps 06/22/25 linaclotide 145 mcg capsule 145 mcg PO QAM #30 caps 06/22/25 (Linzess) isosorbide dinitrate 30 mg tablet 30 mg PO .qd #30 tabs 07/21/25 isosorbide mononitrate 30 mg 30 mg PO DAILY #30 tabs 07/21/25 tablet,extended release 24 hr Allergies Allergy/AdvReac Type Severity Reaction Status Date / Time codeine Allergy Mild N/V Verified 01/26/25 15:38 contrast dye Allergy Severe Hives Uncoded 01/26/25 15:38 Patient History Medical History Uncontrolled REM sleep behavior disorder Neuromuscular disorder Nightmare disorder Motion sickness Anxiety with flying Gout Cellulitis Fatigue Osteoarthritis of hands, bilateral GERD (gastroesophageal reflux disease) Finger pain, left Generalized anxiety disorder Decreased bladder capacity Chronic constipation Persistent proteinuria Skin mole Plantar warts Sleep apnea (~1999) CTE (chronic traumatic encephalopathy) Seizures Migraines (~2004) Headache Sports injuries Shoulder pain Fractures (~1973) Foot pain Ankle pain Shingles Chicken pox Tinnitus (~2011) Hearing loss (~2011) Ascending aortic aneurysm (~2016) Hypertension Thoracic aneurysm without mention of rupture URI (upper respiratory infection) Surgical History History of heart artery stent Anesthesia History of nasal surgery History of thumb surgery History of foot surgery History of ankle surgery History of rotator cuff surgery History of knee surgery Family History Father History of heart disease Hypertension Mother Diabetes mellitus History of heart disease Hypertension Brother History of heart disease Hypertension Sister Hypertension Sister Hypertension Grandfather History of heart disease Grandmother History of heart disease Social History alcohol intake: current substance use type: former substance user, marijuana and crack/cocaine Exam Narrative Exam Narrative: GENERAL: Well-developed patient, in mild distress. HEAD: Atraumatic. Normocephalic. EYES: Pupils equal round and reactive. Extraocular motions intact. No scleral icterus. No injection or drainage. ENT: Nose without bleeding, purulent drainage. Throat without erythema, tonsillar hypertrophy or exudate. Airway patent. NECK: Trachea midline. Non tender CARDIOVASCULAR: Regular rate and rhythm without murmurs, gallops, or rubs. RESPIRATORY: Clear to auscultation. Breath sounds equal bilaterally. No wheezes, rales, or rhonchi. No chest wall tenderness. GASTROINTESTINAL: Abdomen soft, non-tender, nondistended. EXTREMITIES: No edema or joint tenderness. BACK: Nontender without deformity or crepitance. No flank tenderness. NEURO: AOx3. Motor functions grossly nonfocal. SKIN: No rash or erythema of visible areas Initial Vital Signs Initial Vital Signs: Vital Signs Temperature 97.8 F 07/21/25 17:40 Pulse Rate 65 07/21/25 17:40 Respiratory Rate 16 07/21/25 17:40 Blood Pressure 229/143 H 07/21/25 17:40 Pulse Oximetry 99 07/21/25 17:40 Oxygen Delivery Method Room Air 07/21/25 17:40 Scores HEART Score Heart Score history: Slightly Suspicious Heart Score EKG: Normal Heart Score Age: > or = 65 years old Heart Score risk factors: 1-2 risk factors Heart Score troponin: < or = to normal limit Heart Score Total: 3 Course Orders Ordered: Discontinued Medications Famotidine (Famotidine 20 Mg/2 Ml Vial) 20 mg IV NOW PRIYA Isosorbide Mononitrate (Isosorbide Mononitrate Er 30 Mg Tablet) 30 mg PO NOW ONE Stop: 07/21/25 22:09 Last Admin: 07/21/25 22:31 Dose: 30 mg Documented By: JEREMIE Nitroglycerin (Nitroglycerin 0.4 Mg Sl Tab) 0.4 mg SL [id number] PRN PRN Reason: Chest Pain Vital Signs Vital signs: Vital Signs - 8 hr 07/21/25 17:40 07/21/25 18:22 07/21/25 18:23 Temperature 97.8 F Pulse Rate 65 59 L Respiratory Rate 16 19 Blood Pressure 229/143 H 163/88 H Pulse Oximetry 99 98 Oxygen Delivery Method Room Air 07/21/25 18:23 07/21/25 18:30 07/21/25 18:30 Temperature Pulse Rate 59 L 54 L Respiratory Rate 18 17 Blood Pressure 166/93 H Pulse Oximetry 97 98 Oxygen Delivery Method 07/21/25 19:00 07/21/25 19:00 07/21/25 19:30 Temperature Pulse Rate 54 L 63 Respiratory Rate 14 18 Blood Pressure 168/82 H Pulse Oximetry 97 95 Oxygen Delivery Method 07/21/25 19:31 07/21/25 19:31 07/21/25 19:43 Temperature Pulse Rate 60 56 L Respiratory Rate 16 19 Blood Pressure 200/95 H Pulse Oximetry 98 98 Oxygen Delivery Method 07/21/25 19:43 07/21/25 20:00 07/21/25 20:01 Temperature Pulse Rate 59 L 60 Respiratory Rate 20 23 Blood Pressure 188/91 H Pulse Oximetry 98 98 Oxygen Delivery Method 07/21/25 20:01 07/21/25 20:30 07/21/25 20:31 Temperature Pulse Rate 52 L Respiratory Rate 11 L Blood Pressure 184/86 H 165/78 H Pulse Oximetry 98 Oxygen Delivery Method 07/21/25 20:31 07/21/25 21:00 07/21/25 21:00 Temperature Pulse Rate 56 L 56 L Respiratory Rate 15 16 Blood Pressure 157/96 H Pulse Oximetry 96 97 Oxygen Delivery Method MDM - Chest Pain Lab Data Attestation: I reviewed the patient's lab results. Lab results narrative: white blood cell count 5900, hemoglobin 16.1, platelets adequate. Glucose 89. Normal renal function, serum CO2, serum potassium. Sodium 136 slight low. T bili 1.5 slight elevation, other liver functions normal. Lipase normal. Troponin negative/ unmeasurable. 07/21/25 17:45 07/21/25 17:45 Labs: Lab Results 07/21/25 07/21/25 Range/Units 17:45 19:40 WBC 5.9 (4.5-11.0) X10^3/uL RBC 4.90 (4.5-5.9) X10^6/uL Hgb 16.1 (13.5-17.5) g/dL Hct 46.9 (41-53) % MCV 95.6 (80-100) fL MCH 32.8 (26-34) PG MCHC 34.3 (30-36) % RDW 13.7 (11.6-14.8) % Plt Count 189 (150-400) X10^3/uL Neut % (Auto) 59.3 (50-75) % Lymph % (Auto) 29.2 (25-40) % [place] % (Auto) 8.1 (3-14) % Eos % (Auto) 2.4 (2-4) % Baso % (Auto) 1.0 (0-2) % Neut # (Auto) 3500 (5230-5228) /uL Lymph # (Auto) 1700 (7664-6414) /uL [place] # (Auto) 500 (0-900) /uL Eos # (Auto) 100 (0-450) /uL Baso # (Auto) 100 (0-100) /uL PT 10.6 (9.4-12.5) SECONDS INR 0.9 (0.9-1.3) APTT 31 (25.1-36.5) SECONDS Sodium 136 L (137-145) mmol/L Potassium 4.2 (3.4-5.1) mmol/L Chloride 103 (98-107) mmol/L Carbon Dioxide 25 (22-32) mmol/L BUN 10 (9-20) mg/dL Creatinine 0.87 (0.66-1.25) mg/dL Estimated GFR > 60 (>60) mL/min BUN/Creatinine Ratio 11.5 (6-22) Glucose 89 (70-99) mg/dL Calcium 9.4 (8.4-10.2) mg/dL Magnesium 1.9 (1.6-2.3) mg/dL Total Bilirubin 1.5 H (0.2-1.3) mg/dL AST 32 (17-59) IU/L ALT 22 (<50) IU/L Alkaline Phosphatase 55 (38-126) U/L Total Creatine Kinase 74 (55-170) U/L Troponin I < 0.012 0.013 (0.01-0.034) ng/mL NT-Pro-B Natriuret Pep 442 H (<125) pg/mL Total Protein 7.3 (6.3-8.2) g/dL Albumin 4.6 (3.5-5.0) g/dL Globulin 2.7 (1.7-4.1) g/dL Albumin/Globulin Ratio 1.7 (1.0-2.8) Lipase 93 (23-300) U/L ECG Data Attestation: I personally reviewed and interpreted this ECG as follows: Interpretation: 1741, normal sinus rhythm with rate of 63, no obvious ST segment elevation or depression changes. IN 166, QRS 106, QTC 433. 1785, sinus bradycardia with rate of 56, sinus bradycardia. No obvious ST segment elevation or depression changes. IN 190, QRS 112, QTC 422. MDM Narrative Medical decision making narrative: 64-year-old male with history of CAD status post two-vessel coronary stenting March 2024, recent fatigue symptoms similar to prior CAD symptoms, nuclear medicine stress test April 2025 reportedly reassuring, followed by local cardiology Dr. Ty, had consultation with vascular surgery [facility], awaiting angiography evaluation for possible peripheral artery disease, has had episodic chest discomfort today this afternoon. HEART Score = 3 EKG without obvious ischemic changes Chest x-ray no acute changes. See radiology report. Lab data: White blood cell count 5900, hemoglobin 16.1, platelets adequate. Glucose 89. Normal renal function, serum CO2, serum potassium. Sodium 136 slight low. T bili 1.5 slight elevation, other liver functions normal. Lipase normal. Troponin negative/ unmeasurable. Repeat troponin 0.013 measurable but quite low. Consult [facility] based cardiology on-call for disposition plan, has seen Dr. Ty in the past/recently, Dr. Suh listed on-call. 2099, discussed with [facility] cardiology on-call Dr Suh who was able to review the stress test and it was apparently reassuring. We discussed patient current medications, does not feel the patient needs addition of Isordil at this time, continue current medications, follow up with [facility] as planned, follow up with local cardiology Dr. Ty. Above advice relayed to patient, who wanted 2nd opinion from [facility] Cardiology on-call. 2149, discussed with Dr Turk Cardiology, able to review EPIC records, who feels Isordil addition to current medication regimen would be helpful, 30 mg daily, then to follow up with Dr. Triplett as planned. Patient made aware of above recommendation, would like to start Isordil, 1st dose now, prescription sent to requested pharmacy. Isosorbide mononitrate extended release 30 mg tablet given, prescription sent to his requested pharmacy. 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 Discharged home with family. Return precautions discussed. Discharge Plan Departure Patient Disposition: Home Clinical Impression: Chest pain, Fatigue, Hypertension Activity Restrictions/Additional Instructions: Known coronary artery disease status post two-vessel coronary artery stenting March 2024, recent nuclear medicine stress test April 2025 reportedly reassuring, awaiting further evaluation outpatient for possible peripheral artery disease through vascular surgery at [facility] by history, today with episodic short duration self-limited chest discomfort, EKG and blood testing not suggestive of heart attack at this time. Initial blood pressure was elevated, we had discussion about CT angiography but you have a severe reaction to contrast, hold off on angiography testing at this time. Blood pressure elevated, no specific treatment, improved without specific treatment during hospital stay. Reassuring blood tests. Follow up with your vascular surgeon as planned. Follow up with your chicken hatchery helper Dr. Ty, contact his office tomorrow to alert him of your emergency department evaluation, to see if he would like to have any cardiac specific evaluation done any sooner. Return to this/nearest emergency department for any change worsening symptoms or any concerns prior. You requested consultation with cardiologists on-call at [facility], case discussed with Dr. Ruiz, who was able to review records, did advise addition of isosorbide mononitrate long-acting oral nitroglycerin, which can help with chest discomfort as an antianginal medication, and also we will lower blood pressure, start low dose initial 30 mg once daily dose. Sections sent to your requested pharmacy. Follow up with your chicken hatchery helper in [facility] as planned. Return to this/nearest emergency department for any change worsening symptoms or any concerns prior. (note both isosorbide formulations transmitted, you are prescribed Imdur, isosorbide mononitrate 30 mg extended release 1 tablet daily) Prescriptions: New isosorbide dinitrate 30 mg tablet 30 mg PO .qd Qty: 30 0RF Rx Instructions: allow nitrate-free interval of 12-14 hrs per 24-hr period isosorbide mononitrate 30 mg tablet extended release 24 hr 30 mg PO DAILY Qty: 30 0RF No Action rizatriptan 10 mg tablet See Rx Instructions PO .COMPLEX Qty: 30 0RF Rx Instructions: take 1 tab at onset of headache; if no relief may repeat 1 tab after at least 2 hrs; max = 3 tabs/24 hr PO lisinopril 20 mg tablet 20 mg PO BID Qty: 180 2RF topiramate 25 mg tablet 25 mg PO BID Qty: 180 3RF gabapentin 100 mg capsule 100 mg PO BEDTIME Qty: 30 2RF prazosin 2 mg capsule 6 mg PO QPM Qty: 270 0RF metoprolol succinate 25 mg tablet extended release 24 hr 25 mg PO DAILY Qty: 90 3RF clonazepam 0.5 mg tablet 0.25 mg PO BEDTIME Rx Instructions: administer 30 minutes before bedtime doxepin 10 mg capsule 10 mg PO BEDTIME Qty: 30 8RF Linzess 145 mcg capsule 145 mcg PO QAM Qty: 30 3RF lorazepam 0.5 mg tablet 0.5 mg PO DAILY PRN (Reason: anxiety) Qty: 10 0RF magnesium hydroxide [[place] Milk of Magnesia] 400 mg/5 mL suspension 400 mg PO DAILY PRN aspirin [Adult Low Dose Aspirin] 81 mg tablet,delayed release (DR/EC) 81 mg PO DAILY atorvastatin 40 mg tablet 40 mg PO DAILY clopidogrel 75 mg tablet 75 mg PO DAILY nitroglycerin 0.4 mg tablet, sublingual sublingual Referrals: Alfonzo Kwon DO [Primary Care Provider, Family Practice] Stand Alone Forms: Patient Portal/API
[2025-07-21 18:22] LABS: Alanine Aminotransferase 22 IU/L (<50); Albumin 4.6 g/dL (3.5-5.0); Albumin Globulin Ratio 1.7 (1.0-2.8); Alkaline Phosphatase 55 U/L (38-126); Blood Urea Nitrogen 10 mg/dL (9-20); Calcium 9.4 mg/dL (8.4-10.2); Carbon Dioxide 25 mmol/L (22-32); Chloride 103 mmol/L (98-107); Creatine Kinase 74 U/L (55-170); Estimated Glomerular Filt Rate > 60 mL/min (>60); Globulin 2.7 g/dL (1.7-4.1); Glucose 89 mg/dL (70-99); HEMOLYSIS < 15 (0-50); Lipase 93 U/L (23-300); Magnesium 1.9 mg/dL (1.6-2.3); Potassium 4.2 mmol/L (3.4-5.1); Sodium 136 mmol/L (137-145); Total Protein 7.3 g/dL (6.3-8.2)
[2025-07-21 18:33] LABS: NT-proBNP (BNP-Adult 18+) 442 pg/mL (<125); Troponin I < 0.012 ng/mL (0.01-0.034)
[2025-07-21 20:11] LABS: Troponin I 0.013 ng/mL (0.01-0.034)
--- NOTE | 2025-07-21 21:16 | PC.NURSE ---
OK for pt to take home meds per Dr. Graves
--- NOTE | 2025-07-21 21:27 | PC.NURSE ---
2114: Pt took Atorvastatin 40mg, Clonazepam 0.5mg, Lisinopril 20mg, Topiramate 50mg
[2025-07-21] MEDS: ISOSORBIDE MONONITRATE ER 30 MG TABLET PO (22:31)
== END 2025-07-21 22:40 | disposition home or self-care (01) ==
PROVIDERS: Emergency Medicine; Emergency Provider Emergency Medicine; PCP Family Medicine
DX: R07.9 Chest pain, unspecified (principal); R53.83 Other fatigue; I10 Essential (primary) hypertension; I25.10 Atherosclerotic heart disease of native coronary artery without angina pectoris; Z95.5 Presence of coronary angioplasty implant and graft; Z87.891 Personal history of nicotine dependence
CPT/HCPCS: 71045; 80053; 82550; 83690; 83735; 83880; 84484; 85025; 85610; 85730; 93005; 99283; 99284

== ENCOUNTER → 2025-07-27 15:12 | Outpatient (CLI) | payer MEDICARE, OTHER, SELFPAY ==
[2025-07-27 17:37] LABS: TSH w/ Reflex to FT4 1.56 uIU/mL (0.47-4.68)
== END ==
PROVIDERS: PCP Family Medicine; Referring Provider Nurse Practitioner Acute Care; Visit Provider Nurse Practitioner Acute Care
DX: R00.2 Palpitations (principal)
CPT/HCPCS: 36415; 84443

== ENCOUNTER → 2025-08-06 15:40 | Outpatient (CLI) | payer MEDICARE, OTHER, SELFPAY ==
--- NOTE | 2025-08-06 15:41 | DI.US.S_ITS ---
PROCEDURE: US CAROTID DOPPLER BI INDICATIONS: CORONARY ARTERY DISEASE TECHNIQUE: Color and pulse Doppler interrogation was performed of both carotid systems, with image documentation and velocity measurements. COMPARISON: None. FINDINGS: Stenosis calculations are based on SRU (Society of Radiologists in Ultrasound) criteria. Right side: Common carotid artery peak systolic velocity: 73 cm/sec. Internal carotid artery peak systolic velocity: 61 cm/sec. Internal carotid artery end diastolic velocity: 23 cm/sec. External carotid artery peak systolic velocity: 89 cm/sec. ICA/CCA peak systolic ratio: 0.8 . Poole scale imaging description: Atherosclerotic plaque Percent internal carotid artery stenosis: Less than 50 . Vertebral artery: Flow direction is antegrade. Left side: Common carotid artery peak systolic velocity: 75 cm/sec. Internal carotid artery peak systolic velocity: 72 cm/sec. Internal carotid artery end diastolic velocity: 25 cm/sec. External carotid artery peak systolic velocity: 64 cm/sec. ICA/CCA peak systolic ratio: 1.0 . Poole scale imaging description: Atherosclerotic plaque Percent internal carotid artery stenosis: Less than 50 . Vertebral artery: Flow direction is antegrade. IMPRESSION: 1. In the right carotid artery, there is less than 50 stenosis based on peak systolic velocity criteria. 2. In the left carotid artery, there is less than 50 stenosis based on peak systolic velocity criteria. 3. Antegrade vertebral arteries. Approved by: Kp Morales M.D. on 08/06/2025 at 18:24
== END ==
PROVIDERS: PCP Family Medicine; Referring Provider Nurse Practitioner Acute Care; Visit Provider Nurse Practitioner Acute Care
DX: I25.119 Atherosclerotic heart disease of native coronary artery with unspecified angina pectoris (principal); I65.23 Occlusion and stenosis of bilateral carotid arteries
CPT/HCPCS: 93880